=== PATIENT | male | born 1970 | race Two or more races ===

== ENCOUNTER 2021-01-09 19:19 | Emergency (ER) | payer BC, OTHER ==
[~2021-01-09] VITALS: Ht 190.5 cm; Wt 83.9 kg
--- NOTE | 2021-01-09 19:32 | NUR ---
PT BIBRA C/O PALPITATION S/P TAKING ADDERALL AND MARIJUANA. PT AAOX4 BREATHING EVENLY AND UNLABORED. PER PT, HE TOOK ADDERALL "TO CLEAN THE HOUSE, THEN I FELT WIERD, SO I SMOKED SOME POT". AT BEDSIDE. PT ATTACHED TO MONITOR AND POX. SKIN IS WARM AND DRY. PT GIVEN BLANKET AND CALL LIGHT WITHIN REACH
--- NOTE | 2021-01-09 19:56 | NUR ---
LAB AT BEDSIDE
[2021-01-09] MEDS ORDERED: IV NS 0.9% 1,000 ML BAG IV ONE (20:00)
--- NOTE | 2021-01-09 20:02 | NUR ---
URINE SENT TO LAB
--- NOTE | 2021-01-09 20:05 | NUR ---
XRAY AT BEDSIDE
--- NOTE | 2021-01-09 20:08 | NUR ---
TAKEN TO RADIOLOGY
[2021-01-09 20:15] LABS: BASOPHILS % (AUTO) 0.5 % (0.0-2.0); EOSINOPHILS % (AUTO) 1.2 % (0.0-6.0); HEMATOCRIT 47 % (39-51); HEMOGLOBIN 16.1 g/dL (13.5-17.5); LYMPHOCYTES # (AUTO) 1.5 K/uL (0.8-4.8); LYMPHOCYTES % (AUTO) 15.4 % (20.0-44.0); MEAN CORPUSCULAR HGB CONC 34 g/dl (31.0-36.0); MEAN CORPUSCULAR VOLUME 93 fL (80-96); MONOCYTES # (AUTO) 0.6 K/uL (0.1-1.30); MONOCYTES % (AUTO) 6.8 % (2.0-12.0); NEUTROPHILS # (AUTO) 7.2 K/uL (1.8-8.9); NEUTROPHILS % (AUTO) 76.1 % (43.0-81.0); PLATELET COUNT (AUTO) 279 K/uL (150-450); RED BLOOD CELL COUNT(AUTO) 5.05 MIL/uL (4.5-6.0); WHITE BLOOD COUNT (AUTO) 9.5 K/uL (4.3-11.0)
--- NOTE | 2021-01-09 20:15 | NUR ---
RETURNED FROM RADIOLOGY
[2021-01-09 20:18] LABS: BILIRUBIN,URINE NEGATIVE (NEGATIVE); COLOR,URINE YELLOW (YELLOW); LEUKOCYTE ESTERASE ,URINE NEGATIVE (NEGATIVE); NITRITE, URINE NEGATIVE (NEGATIVE); PH,URINE 6.5 (5.0-8.0); PROTEIN,URINE NEGATIVE (NEGATIVE); UGLUCOSE NEGATIVE (NEGATIVE); UROBILINOGEN,URINE 0.2 EU/dL (0.2)
[2021-01-09 20:27] LABS: CALCIUM, SERUM 9.2 mg/dL (8.5-10.1); CARBON DIOXIDE 25 mmol/L (21-32); CHLORIDE 99 mmol/L (98-107); CREATININE 1.2 mg/dL (0.6-1.3); GLUCOSE 118 mg/dL (74-106); POTASSIUM 3.4 mmol/L (3.5-5.1); SODIUM SERUM 135 mmol/L (136-145); UREA NITROGEN, BLOOD 20 mg/dL (7-18)
[2021-01-09 20:33] LABS: ALANINE AMINOTRANSFERASE 45 U/L (12-78); ALBUMIN 4.5 g/dL (3.4-5.0); ALCOHOL, BLOOD < 3 mg/dL (0-0); ALKALINE PHOSPHATASE 71 U/L (46-116); ASPARTATE AMINOTRANSFERASE 28 U/L (15-37); BILIRUBIN,DIRECT 0.3 mg/dL (0.0-0.2); BILIRUBIN,TOTAL 1.7 mg/dL (0.2-1.0); TOTAL PROTEIN, SERUM 8.3 g/dL (6.4-8.2)
[2021-01-09 20:36] LABS: ACETAMINOPHEN 0 ug/ml (10-30)
--- NOTE | 2021-01-09 21:23 | NUR ---
CALLED [facility] TO HAVE IMAGE READ. RADIOLOGIST WORKING ON IMAGE NOW
--- NOTE | 2021-01-09 21:28 | NUR ---
Patient discharged to home in stable condition. Written and verbal after care instructions given. Patient verbalizes understanding of instruction. IV removed. Catheter intact and site benign. Pressure and 4x4 applied to site. No bleeding noted. Pt ambulatory with a steady gait
[2021-01-09 21:53] VITALS: BP 155/90
== END 2021-01-09 21:28 | disposition home or self-care (01) ==
LOC: ER 19:22
DX: R00.2 Palpitations (principal); F14.10 Cocaine abuse, uncomplicated; E86.0 Dehydration; R74.01 Elevation of levels of liver transaminase levels; I10 Essential (primary) hypertension; Z88.2 Allergy status to sulfonamides
CPT/HCPCS: 36415; 70450; 71045; 80048; 80076; 80143; 80307; 80320; 81003; 85025; 93005; 96360; 99285; J7030; G0480

== ENCOUNTER 2021-01-24 14:10 | Emergency (ER) | payer BC ==
[~2021-01-24] VITALS: Ht 190.5 cm; Wt 83.9 kg
--- NOTE | 2021-01-24 14:17 | NUR ---
BIB [facility] 77 FROM AN URGENT CARE,C/O CHEST PAIN SINCE HE WOKE UP IN THE MORNING X3DAYS, AAOX3, BREATHING EVEN AND NON LABORED, CONNECTED TO MONITOR, AWAITING MD VILLA
[2021-01-24] MEDS ORDERED: MELO-107 PO (14:38)
[2021-01-24] MEDS ORDERED: ETAN50PE3 IM (14:38)
[2021-01-24] MEDS ORDERED: LISI10TA29 PO (14:38)
[2021-01-24] MEDS ORDERED: TADA5TAB13 PO (14:38)
--- NOTE | 2021-01-24 14:40 | NUR ---
DR BREEN AT BEDSIDE
--- NOTE | 2021-01-24 14:45 | NUR ---
LABS WERE DRAWN AND SENT
[2021-01-24] MEDS ORDERED: LORAZEPAM INJ 2 MG/ML VIAL ONE (14:59)
[2021-01-24] MEDS: LORAZEPAM INJ 2 MG/ML VIAL IV ONE (15:00)
[2021-01-24 15:10] LABS: BASOPHILS # (AUTO) 0.1 K/uL (0.0-0.2); BASOPHILS % (AUTO) 0.8 % (0.0-2.0); EOSINOPHILS % (AUTO) 1.3 % (0.0-6.0); HEMATOCRIT 45 % (39-51); HEMOGLOBIN 15.4 g/dL (13.5-17.5); LYMPHOCYTES # (AUTO) 1.2 K/uL (0.8-4.8); LYMPHOCYTES % (AUTO) 17.7 % (20.0-44.0); MEAN CORPUSCULAR HGB CONC 34 g/dl (31.0-36.0); MEAN CORPUSCULAR VOLUME 93 fL (80-96); MONOCYTES # (AUTO) 0.5 K/uL (0.1-1.30); MONOCYTES % (AUTO) 7.5 % (2.0-12.0); NEUTROPHILS # (AUTO) 4.9 K/uL (1.8-8.9); NEUTROPHILS % (AUTO) 72.7 % (43.0-81.0); PLATELET COUNT (AUTO) 259 K/uL (150-450); RED BLOOD CELL COUNT(AUTO) 4.86 MIL/uL (4.5-6.0); WHITE BLOOD COUNT (AUTO) 6.8 K/uL (4.3-11.0)
[2021-01-24 15:49] LABS: CALCIUM, SERUM 9.1 mg/dL (8.5-10.1); CARBON DIOXIDE 27 mmol/L (21-32); CHLORIDE 100 mmol/L (98-107); GLUCOSE 111 mg/dL (74-106); POTASSIUM 4.4 mmol/L (3.5-5.1); SODIUM SERUM 136 mmol/L (136-145); UREA NITROGEN, BLOOD 14 mg/dL (7-18)
[2021-01-24] MEDS ORDERED: LORA-259 PO (16:55)
[2021-01-24] MEDS ORDERED: NITR0.4T SL (16:55)
[2021-01-24] MEDS ORDERED: AMLO-212 PO (16:55)
[2021-01-24 17:13] VITALS: BP 143/104
--- NOTE | 2021-01-24 17:13 | NUR ---
IV removed. Catheter intact and site benign. Pressure and 4x4 applied to site. No bleeding noted.Patient discharged to home in stable condition. Written and verbal after care instructions given. Patient verbalizes understanding of instruction.
== END 2021-01-24 17:14 | disposition home or self-care (01) ==
LOC: ER 14:15
DX: R07.89 Other chest pain (principal); R00.2 Palpitations; I10 Essential (primary) hypertension; Z88.2 Allergy status to sulfonamides; Z91.018 Allergy to other foods; Z79.899 Other long term (current) drug therapy
CPT/HCPCS: 36415; 71045; 80048; 83880; 84484; 85025; 93005 ×2; 96374; 99285; J2060